=== PATIENT | female | born 1985 | race Caucasian/White ===

== ENCOUNTER 2016-12-15 12:05 | Day surgery (SDC) | payer BC ==
[~2016-12-15 12:05] MED LIST: RINGERS SOLUTION,LACTATED 1,000 ML IV PRN
[2016-12-15] MEDS ORDERED: IBUPROFEN 800 MG TABLET PO ONE (13:28)
[2016-12-15] MEDS ORDERED: oxyCODONE HCL/ACETAMINOPHEN 1 TAB TABLET PO ONE (13:28)
[2016-12-15] MEDS ORDERED: RINGERS SOLUTION,LACTATED 1,000 ML IV PRN (13:28)
--- NOTE | 2016-12-15 14:27 | OR ---
Operative Report - Dictated Report Narrative: Date of Procedure: 12/15/2016 PROCEDURE: 1. Colposcopy of cervix and vagina with cervical biopsy ANESTHESIA: General with iv sedation PREOPERATIVE DIAGNOSIS: 1. Abnormal Pap smear: ASCUS with positive high risk HPV, unable to tolerate office procedure. POSTOPERATIVE DIAGNOSES: 1. Abnormal Pap smear: ASCUS with positive high risk HPV. 2. Vaginal cyst SURGEON: Dewayne Marx MD [employer]: [employer] FINDINGS: 1. Vaginal cyst, 1 cm in size at posterior fornix 2. Cervix: acetowhite epithelium at 6 o'clock, no gross lesions. SPECIMEN: 1. Cervical biopsy at 6 o'clock 2. Endocervical curettings DRAINS: None. URINE OUTPUT: not measured BLOOD LOSS: negligible INTRAOPARATIVE IV FLUIDS: 400 ml COMPLICATIONS: None. DESCRIPTION OF PROCEDURE: The patient consented prior to the operation and taken to the operating room. She was placed on the operating table supine. SCDs were placed on her lower extremities. General anesthesia was induced. She was then repositioned in the dorsal lithotomy position. A time-out procedure was conducted to confirm the correct patient for the correct procedure. After time-out, a bivalve speculum was placed into the vagina. A vaginal cyst 1 cm in diameter was seen at the posterior fornix. The cervix was visualized. There was no gross lesions. 5% acetic acid was applied to the cervix and the nearby vagina. Colposcopy was performed. The entire transformation zone was visualized. Acetowhite epithelium was seen at 6 o'clock position. An endocervical curettage was performed. Scant amount of tissue was obtained. Cervical biopsy was taken at 6 o'clock. Bleeding from the biopsy site was controlled with silver nitrite and pressure. The colposcopy was satisfactory. The speculum was removed. Patient tolerated the procedure well. All counts were correct. The patient was taken to the recovery room in stable condition. Dewayne Marx MD
[2016-12-15 15:04] VITALS: BP 133/58
== END 2016-12-15 12:06 | disposition home or self-care (01) ==
LOC: AMB 12:05
PROVIDERS: ATTEND Obstetrics & Gynecology
PROC: 0UBC8ZX Excision of Cervix, Via Natural or Artificial Opening Endoscopic, Diagnostic (ICD-10-PCS; principal; 2016-12-15 13:00)
DX: N89.8 Other specified noninflammatory disorders of vagina (principal); R87.610 Atypical squamous cells of undetermined significance on cytologic smear of cervix (ASC-US); R87.810 Cervical high risk human papillomavirus (HPV) DNA test positive; I10 Essential (primary) hypertension; N80.9 Endometriosis, unspecified; F41.1 Generalized anxiety disorder; Z68.23 Body mass index [BMI] 23.0-23.9, adult

== ENCOUNTER 2019-03-31 23:07 | Observation (INO) ==
[2019-04-01 00:56] LABS: Cocaine Ur Negative (NEGATIVE); Urine Barbiturate Negative (NEGATIVE); Urine Benzodiazepines Negative (NEGATIVE); Urine Opiates Negative (NEGATIVE); Urine PCP Negative (NEGATIVE); Urine THC Negative (NEGATIVE)
[2019-04-01 01:01] LABS: Hematocrit 35.6 % (37.0-47.0); Hemoglobin 12.4 gm/dL (12.5-16.0); Mean Cell Volume 90.8 fl (78-100); Mean Corpuscular Hemoglobin 31.6 pg (27-31); Mean Corpuscular Hgb Conc 34.8 g/dl (32-36); Mean Platelet Volume 9.1 fl (8-12.5); Neutrophil # 9.1 K/mm3 (1.3-6.0); Neutrophil % 72.6 % (42-75.0); Platelet Count 297 K/mm3 (150-450); Red Blood Count 3.92 M/mm3 (4.2-5.4); Red Cell Distribution Width 12.6 % (11.5-14.0); White Blood Count 12.6 K/mm3 (4.0-10.5)
[2019-04-01 01:12] LABS: Random Urine Total Protein 11.3 mg/dL (0-12)
[2019-04-01 01:14] LABS: Albumin * 2.4 gm/dl (3.4-5.0); Anion Gap 13.8 mmol/L (6.8-13.8); BUN/Creatinine Ratio 7.2 (9.0-21.6); Bilirubin, Total 0.3 mg/dL (0.0-1.1); Ca. Corrected For Albumin 10.2 mg/dL (8.4-10.2); Calcium * 9.2 mg/dL (7.9-10.9); Carbon Dioxide 23.8 mmol/L (24-32.6); Potassium 3.6 mmol/L (3.4-4.6); Total Protein 6.3 gm/dL (6.2-8.2)
[2019-04-01] MEDS ORDERED: LABETALOL HCL 5 MG/ML VIAL IV ONE (01:39)
[2019-04-01] MEDS ORDERED: MAGNESIUM SULFATE IN WATER 50 ML IV ONE (02:02)
[2019-04-01] MEDS ORDERED: DIAZEPAM 5 MG/ML SYRG IV PRN (02:02)
[2019-04-01] MEDS ORDERED: CALCIUM GLUCONATE 4.65 MEQ/10 ML VIAL IV PRN (02:02)
[2019-04-01] MEDS ORDERED: RINGER'S SOLUTION,LACTATED 1,000 ML IV PRN (02:02)
[2019-04-01] MEDS ORDERED: BETAMETHASONE ACETATE,SOD PHOS 6 MG/ML VIAL IM ONE (02:03)
[2019-04-01] MEDS ORDERED: MAGNESIUM SULFATE IN WATER 1,000 ML IV SCH (02:15)
--- NOTE | 2019-04-01 02:35 | HP ---
Chief Complaint - Chief Complaint Date of Service: 04/01/19 Time of Service: 02:22 Chief Complaint: headache History of Present Illness: 33 year old at 30w 6d who presented to labor and delivery complaining of a headache. The patient began her care with me but was dismissed due to metamphetamine use as well as being noncompliant. Her headache has now resolved. No medications were given for her headache. She denies visual changes or abdominal pain. The patient denies ctx, vb or lof. Fetus is active. Medical History (Updated 02/08/19 @ 13:46 by Mar Salguero LPN) Chest pain of unknown etiology (Acute) Hypertension (Chronic) Acute chest wall pain (Acute) Anxiety as acute reaction to gross stress (Acute) Abscess of foot without toes, left (Acute) Pyelonephritis (Acute) Sinusitis (Acute) Hypokalemia (Acute) Depression HTN (hypertension) Anxiety ASCUS with positive high risk HPV cervical Onset Date: ~11/22/16 Endometriosis Onset Date: ~03/21/15 Surgical History: Surgical History (Updated 11/13/18 @ 10:02 by Sonia Hanna LPN) History of section Onset Date: ~03/15/11 History of colposcopy Onset Date: ~12/15/16 ASCUS, +HPV Family History: Family History (Updated 11/13/18 @ 10:03 by Sonia Hanna LPN) Mother Depression Father Myocardial infarction Depression Grandmother Breast cancer gokul to bone Aunt Breast cancer Lung cancer Social History: (Last Updated 02/08/19 @ 16:16 by Lidia Huber DNP) Social History: adopted: No Marital status: Legally household members: children current occupational status: employed current occupation: [employer] current occupational exposures/hazards: No Highest education level completed: some college, no degree Service: No Tobacco: Smoking Status: Former smoker Alcohol: alcohol intake: current alcohol intake frequency: holiday/special occasion details: none since +UPT Substance Use: substance use type: does not use Dietary Habits: caffeine: Yes caffeine comment: 3 daily Type: carbonated beverages Pets: pets and animals: cat(s) Personal Safety: do you feel safe at home: Yes victim of physical abuse: No victim of emotional abuse: No victim of sexual abuse: No Review Of Systems (GEN) - Review of Systems Generalized/Overall Review: Present: No Symptoms Reported EENTM: Present: No Symptoms Reported Respiratory: Present: No Symptoms Reported Cardiac: Present: No Symptoms Reported Abdominal: Present: No Symptoms Reported Genitourinary: Present: No Symptoms Reported Musculoskeletal: Present: No Symptoms Reported Neurological: Present: Headache Skin: Present: No Symptoms Reported Endocrine: Present: No Symptoms Reported Immunizations: IMMUNIZATION HX Immunizations Up to Date Yes History of Influenza Vaccine No Hx Pneumococcal Vaccination No Allergies/Adverse Reactions: Allergies Allergy/AdvReac Type Severity Reaction Status Date / Time No Known Allergies Allergy Verified 03/31/19 23:11 Home Medications: HOME MEDICATIONS sertraline 100 mg tablet 150 mg PO DAILY #30 tab 01/04/19 [Last Taken 03/31/19] Aspirin [Aspir-Low] 81 mg PO DAILY 04/01/19 [Last Taken 03/31/19] NIFEdipine [Nifedipine ER] 30 mg PO DAILY 04/01/19 [Last Taken 03/31/19 22:30] Pnv No.95/Ferrous Fum/Folic AC [ Caplet] 1 ea PO DAILY 04/01/19 [Last Taken 03/31/19] Ranitidine HCl [Heartburn Relief] 150 mg PO DAILY 04/01/19 [Last Taken Unknown] Exam - Exam Vital Signs: Vital Signs - Last Taken Temp 36.7 C 04/01/19 00:16 Pulse 95 04/01/19 02:03 Resp 18 04/01/19 00:16 BP 161/101 H 04/01/19 02:03 Pulse Ox 99 04/01/19 00:16 Constitutional: Present: Alert, Oriented x3, Cooperative, No distress Respiratory: Present: lungs clear, normal breath sounds Cardiovascular/Chest: Present: regular rate, rhythm, no murmur Abdomen: Present: soft, nontender, nondistended /Rectal: Present: Exam deferred Extremity: Present: non-tender, no calf tenderness Skin Exam: Present: normal color, warm/dry, no cyanosis Appearance: Present: appropriate appearance Eye contact: Present: cooperative Thoughts: Present: normal thought pattern Diagnostic Studies: Abnormal Lab Results 04/01/19 04/01/19 04/01/19 Range/Units 00:30 00:58 00:58 WBC 12.6 H (4.0-10.5) K/mm3 RBC 3.92 L (4.2-5.4) M/mm3 Hgb 12.4 L (12.5-16.0) gm/dL Hct 35.6 L (37.0-47.0) % MCH 31.6 H (27-31) pg Immature Gran % (Auto) 0.90 H (0.001-0.429) % Immature Gran # (Auto) 0.11 H (0.000-0.0310) K/mm3 Lymphocytes % 15.0 L (20-51) % Eosinophils % 3.8 H (0.0-3.0) % Neutrophils # 9.1 H (1.3-6.0) K/mm3 Carbon Dioxide 23.8 L (24-32.6) mmol/L BUN/Creatinine Ratio 7.2 L (9.0-21.6) ALT 7 L (19-67) U/L Albumin 2.4 L (3.4-5.0) gm/dl Ur Random Creatinine 27.1 L (60-200) mg/dL U [place] Prot/Creat Ratio 417 H (0-199) mg/gm Laboratory Results WBC 12.6 K/mm3 (4.0-10.5) H 04/01/19 00:58 RBC 3.92 M/mm3 (4.2-5.4) L 04/01/19 00:58 Hgb 12.4 gm/dL (12.5-16.0) L 04/01/19 00:58 Hct 35.6 % (37.0-47.0) L 04/01/19 00:58 MCV 90.8 fl (78-100) 04/01/19 00:58 MCH 31.6 pg (27-31) H 04/01/19 00:58 MCHC 34.8 g/dl (32-36) 04/01/19 00:58 RDW 12.6 % (11.5-14.0) 04/01/19 00:58 Plt Count 297 K/mm3 (150-450) 04/01/19 00:58 MPV 9.1 fl (8-12.5) 04/01/19 00:58 Immature Gran % (Auto) 0.90 % (0.001-0.429) H 04/01/19 00:58 Immature Gran # (Auto) 0.11 K/mm3 (0.000-0.0310) H 04/01/19 00:58 72.6 % (42-75.0) 04/01/19 00:58 15.0 % (20-51) L 04/01/19 00:58 6.8 % (0.0-9) 08 00:58 3.8 % (0.0-3.0) H 04/01/19 00:58 0.9 % (0.0-1.0) 04/01/19 00:58 Nucleated RBC % 0.0 k/mm3 (0-1) 04/01/19 00:58 9.1 K/mm3 (1.3-6.0) H 04/01/19 00:58 1.88 k/mm3 (1.5-3.5) 04/01/19 00:58 0.9 k/mm3 (0.0-1.0) 04/01/19 00:58 0.5 k/mm3 (0.0-0.7) 05 00:58 Absolute Basophils 0.1 k/mm3 (0.0-0.1) 04/01/19 00:58 Sodium 137 mmol/L (132-142) 04/01/19 00:58 137 mmol/L (130-142) 04/01/19 00:58 Potassium 3.6 mmol/L (3.4-4.6) 04/01/19 00:58 Chloride 103 mmol/L (97-106) 04/01/19 00:58 Carbon Dioxide 23.8 mmol/L (24-32.6) L 04/01/19 00:58 13.8 mmol/L (6.8-13.8) 04/01/19 00:58 BUN 5 mg/dL (3-23) D 04/01/19 00:58 0.69 mg/dL (0.4-1.4) 04/01/19 00:58 Est GFR (Non-Af Amer) 103 mL/min (60-130) D 04/01/19 00:58 7.2 (9.0-21.6) L 04/01/19 00:58 81 mg/dL (70-110) 04/01/19 00:58 Calcium 9.2 mg/dL (7.9-10.9) 04/01/19 00:58 Calcium Adj for Albumin 10.2 mg/dL (8.4-10.2) 04/01/19 00:58 0.3 mg/dL (0.0-1.1) 04/01/19 00:58 AST 15 U/L (0-48) 04/01/19 00:58 ALT 7 U/L (19-67) L 04/01/19 00:58 119 U/L (50-170) 04/01/19 00:58 6.3 gm/dL (6.2-8.2) 04/01/19 00:58 2.4 gm/dl (3.4-5.0) L 04/01/19 00:58 Ur Random Creatinine 27.1 mg/dL (60-200) L 04/01/19 00:30 U Random Total Protein 11.3 mg/dL (0-12) 04/01/19 00:30 U [place] Prot/Creat Ratio 417 mg/gm (0-199) H 04/01/19 00:30 Negative (NEGATIVE) 04/01/19 00:10 Negative (NEGATIVE) 04/01/19 00:10 Ur Phencyclidine Scrn Negative (NEGATIVE) 04/01/19 00:10 Urine Amphetamine Negative (NEGATIVE) 04/01/19 00:10 U Benzodiazepines Scrn Negative (NEGATIVE) 04/01/19 00:10 Negative (NEGATIVE) 04/01/19 00:10 Negative (NEGATIVE) 04/01/19 00:10 Assessment/Plan - Narrative Narrative: 33 year old @ 30w 6d 1. CHTN: severe range blood pressures on admission to labor and delivery, BPs are now in the normal range after administration of labetalol 20mg IV x1. Given that IV labetalol was given the patient will need to stay on telemetry for 12 hours per hospital protocol. She is on procardia 30mg XL but per the notes from her provider at [facility] she is supposed to be on 60mg XL and that is likely why her BP is elevated today. UP:CR is in the pre-eclampsia range but there isn't a baseline from this and thus she will need to be followed to determine whether she has now developed superimposed pre-eclampsia. Restart procardia 60mg XL in the morning as well as ASA 2. History of metamphetamine use this : UDS negative today 3. Depression: continue sertraline 4. GERD: continue ranitidine Plan for discharge at 12 hours of labetalol administration or around 3 PM today. Patient should follow-up in 1 day with [facility]
[2019-04-01] MEDS ORDERED: FAMOTIDINE 20 MG TABLET PO SCH (09:00)
[2019-04-01] MEDS ORDERED: ASPIRIN 81 MG TABLET.DR PO SCH (09:00)
[2019-04-01] MEDS ORDERED: SERTRALINE HCL 50 MG TABLET PO SCH (09:00)
[2019-04-01] MEDS ORDERED: PRENATAL VITS96/IRON FUM/FOLIC 1 TAB TABLET PO SCH (09:00)
[2019-04-01] MEDS ORDERED: SERTRALINE HCL 100 MG TABLET PO SCH ×2 (09:00)
[2019-04-01] MEDS ORDERED: NIFEdipine 30 MG TAB.SR.24H PO SCH (10:00)
--- NOTE | 2019-04-01 10:16 | PN ---
Subjective - Date and Time Seen Date: 04/01/19 Time: 10:12 Subjective Narrative: The patient denies a MOREL, visual changes or abdominal pain. She also denies ctx, vb or lof. Fetus is active. Objective - Review of Systems Generalized/Overall Review: Reports: No Symptoms Reported Misc: All systems neg except as marked - Vitals Vitals: Last Vital Signs Temp 36.5 C 04/01/19 08:12 Pulse 90 04/01/19 09:03 Resp 18 04/01/19 08:12 BP 138/88 04/01/19 09:03 Pulse Ox 97 04/01/19 08:12 - Abnormal Lab Findings Abnormal Lab Findings: Abnormal Lab Results 04/01/19 04/01/19 04/01/19 Range/Units 00:30 00:58 00:58 WBC 12.6 H (4.0-10.5) K/mm3 RBC 3.92 L (4.2-5.4) M/mm3 Hgb 12.4 L (12.5-16.0) gm/dL Hct 35.6 L (37.0-47.0) % MCH 31.6 H (27-31) pg Immature Gran % (Auto) 0.90 H (0.001-0.429) % Immature Gran # (Auto) 0.11 H (0.000-0.0310) K/mm3 Lymphocytes % 15.0 L (20-51) % Eosinophils % 3.8 H (0.0-3.0) % Neutrophils # 9.1 H (1.3-6.0) K/mm3 Carbon Dioxide 23.8 L (24-32.6) mmol/L BUN/Creatinine Ratio 7.2 L (9.0-21.6) ALT 7 L (19-67) U/L Albumin 2.4 L (3.4-5.0) gm/dl Ur Random Creatinine 27.1 L (60-200) mg/dL U [place] Prot/Creat Ratio 417 H (0-199) mg/gm - Exam Constitutional: Present: Alert, Oriented x3, Cooperative, No distress Abdomen: Present: soft, nontender, nondistended Extremity: Present: non-tender, no calf tenderness Skin Exam: Present: normal color, warm/dry, no cyanosis Appearance: Present: appropriate appearance Eye contact: Present: cooperative Thoughts: Present: normal thought pattern Assessment/Plan Plan Narrative: 33 year old @ 31w 0d 1. CHTN: BP are normal, increase procardia to 60mg PO XL given severe range BPs on admission to L&D. Growth US obtained and the EFW is at the 29th percentile. The patient was counseled that she will likely need a follow-up ultrasound for growth. Patient to be seen at [facility] this week and preferably tomorrow. Will refill procardia until the patient has an appointment. - Problems/Diagnosis (1) Headache Problem: Acute (2) Hypertension Problem: Chronic
--- NOTE | 2019-04-01 11:12 | PN ---
Progesmisael Note - Interim Date: 04/01/19 Time: 11:10 Narrative: 04/01/19 11:10 The patient is scheduled for an appointment at [facility] tomorrow and given that she was given a dose of her procardia today there is no need to send an Rx for her. Patient should follow-up with [facility] as scheduled. Discharge this afternoon as long as her SBP remains under 160 and her DBP remains under 110.
--- NOTE | 2019-04-01 11:16 | DS ---
(1) Headache Problem: Acute (2) Hypertension Problem: Chronic Qualifiers: Hypertension type: essential hypertension Qualified Code(s): I10 - Essential (primary) hypertension Description of Stay: The patient is a 33 year old that presented to labor and delivery last night with severe range blood pressures. The severe range BPs resolved after a dose of labetalol 20mg IV. Her procardia was increased to 60mg PO XL as the patient was on the wrong dose. A growth US showed adequate interval growth but she will need a repeat growth US with the provider she is receiving care with. Patient will be discharged today and she is to follow-up with [facility] tomorrow as scheduled. Procedures Performed: none Results and Findings: Lab Pending Results 04/01/19 00:10: Urine Opiates Screen Negative, Barbiturate Screen Negative, Ur Phencyclidine Scrn Negative, Urine Amphetamine Negative, U Benzodiazepines Scrn Negative, Urine Cocaine Screen Negative, Urine Marijuana (THC) Negative 04/01/19 00:30: Ur Random Creatinine 27.1 L, U Random Total Protein 11.3, U [place] Prot/Creat Ratio 417 H 04/01/19 00:58: WBC 12.6 H, RBC 3.92 L, Hgb 12.4 L, Hct 35.6 L, MCV 90.8, MCH 31.6 H, MCHC 34.8, RDW 12.6, Plt Count 297, MPV 9.1, Immature Gran % (Auto) 0.90 H, Immature Gran # (Auto) 0.11 H, Neutrophils % 72.6, Lymphocytes % 15.0 L, Monocytes % 6.8, Eosinophils % 3.8 H, Basophils % 0.9, Nucleated RBC % 0.0, Neutrophils # 9.1 H, Lymphocytes # 1.88, Monocytes # 0.9, Eosinophils # 0.5, Absolute Basophils 0.1 04/01/19 00:58: Sodium 137, Plasma Sodium 137, Potassium 3.6, Chloride 103, Carbon Dioxide 23.8 L, Anion Gap 13.8, BUN 5 D, Creatinine 0.69, Est GFR (Non- Af Amer) 103 D, BUN/Creatinine Ratio 7.2 L, Random Glucose 81, Calcium 9.2, Calcium Adj for Albumin 10.2, Total Bilirubin 0.3, AST 15, ALT 7 L, Alkaline Phosphatase 119, Total Protein 6.3, Albumin 2.4 L Discharge Location: Home Disposition: Home self-care Condition: Good Discharge Activity: Activity as tolerated Discharge Diet: General/regular food Problem Oriented Discharge Instructions to Patient/Family: Hypertension During , [id number] Additional Patient Instructions (free text): Your follow up appt is on Monday04/02/19 @ 2:50PM with Dr Gallagher at [facility]. Complete Home Medications List: Complete Home Medication List: sertraline 100 mg tablet 150 mg PO DAILY #30 tab 01/04/19 Aspirin [Aspir-Low] 81 mg PO DAILY 04/01/19 NIFEdipine [Nifedipine ER] 30 mg PO DAILY 04/01/19 NIFEdipine [Procardia Xl] 60 mg PO DAILY tab.sr.24h 04/01/19 Pnv No.95/Ferrous Fum/Folic AC [ Caplet] 1 ea PO DAILY 04/01/19 Ranitidine HCl [Heartburn Relief] 150 mg PO DAILY 04/01/19
[2019-04-01 14:47] VITALS: BP 136/87
== END 2019-04-01 14:30 | disposition home or self-care (01) ==
LOC: ER 23:07 → OBCLINIC 23:29 → OB 23:29 → OBCLINIC 23:30 → OB 04-01 04:50
PROVIDERS: ADMIT Obstetrics & Gynecology; ATTEND Obstetrics & Gynecology
CPT/HCPCS: 36415; 59025; 76816; 80053; 80307; 82570; 84155; 84156; 85025; 96374; G0378